=== PATIENT | male | born 1975 | race Hispanic/Latino ===

== ENCOUNTER 2022-12-03 11:12 | Emergency (ER) | payer OTHER ==
[~2022-12-03] VITALS: Ht 167.6 cm; Wt 114.3 kg
[2022-12-03 11:20] VITALS: BP 130/74
[2022-12-03] MEDS ORDERED: ORPHENADRINE CITRATE 30 MG/ML ML IM ONE (13:30)
[2022-12-03] MEDS ORDERED: KETOROLAC 30MG VIAL (30MG/ML) IM ONE (13:30)
[2022-12-03] MEDS ORDERED: CYCL10TA16 PO (13:32)
[2022-12-03] MEDS ORDERED: IBUP-2070 PO (13:32)
== END 2022-12-03 13:49 | disposition home or self-care (01) ==
LOC: EDH 11:12
DX: M62.838 Other muscle spasm (principal)
CPT/HCPCS: 99284; 73030; 96372 ×2; J1885